=== PATIENT | male | born 2000 | race Caucasian/White ===

== ENCOUNTER 2021-03-08 10:31 | Emergency (ER) | payer OTHER ==
[2021-03-08] MEDS ORDERED: Lidocaine 2% 20 ML MDV SUBCUT ONE (11:35)
[2021-03-08] MEDS ORDERED: Bacitracin Oint 1 GM U/D Packet TOP ONE (11:36)
--- NOTE | 2021-03-08 11:41 | EDM.PDOC ---
ED HPI GENERAL MEDICAL PROBLEM - General Chief Complaint: Laceration Stated Complaint: CUT R MIDDLE FINGER Time Seen by Provider: 03/08/21 11:30 Source of Information: Reports: Patient, RN History Limitations: Reports: No Limitations - History of Present Illness INITIAL COMMENTS - FREE TEXT/NARRATIVE: 20 yo male here after lacerating his R long finger on a piece of farm equip. Last tetanus was 2 yrs ago. 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: Reports: Other (see below) (none) - Related Data Allergies Allergy/AdvReac Type Severity Reaction Status Date / Time No Known Allergies Allergy Verified 03/08/21 10:54 Home Meds: Home Meds Fluticasone Propionate [Flovent HFA 220 MCG] 1 puff INH ASDIRECTED 03/08/21 [History] Loratadine [Claritin] 10 mg PO DAILY 03/08/21 [History] Montelukast [Singulair] 10 mg PO DAILY 03/08/21 [History] Social & Family History - Tobacco Use Tobacco Use Status *Q: Never Tobacco User - Caffeine Use Caffeine Use: Reports: None - Recreational Drug Use Recreational Drug Use: No ED ROS GENERAL - Review of Systems Review Of Systems: See Below Constitutional: Reports: No Symptoms Musculoskeletal: Reports: No Symptoms Skin: Reports: Wound (flap laceration of the R middle finger). Denies: Diaphoresis Neurological: Reports: No Symptoms Psychiatric: Reports: No Symptoms ED EXAM, SKIN/RASH Exam: See Below Exam Limited By: No Limitations General Appearance: Alert, WD/WN, No Apparent Distress Extremities: Other (wound R long finger, normal finger sensation, and flexion) Neurological: Alert, Oriented, CN II-XII Intact, Normal Cognition, No Motor/Sensory Deficits Psychiatric: Normal Affect, Normal Mood Skin: Warm, Dry, Normal Color, No Rash, Wound/Incision (3.2 cm flap laceration of the R long finger. ). No: Intact Location, Skin: Upper Extremity, Right Characteristics: Other (flap) Associated features: Tenderness. No: Warmth, Lymphangitis ED SKIN PROCEDURES - Laceration/Wound Repair Right Medial Digit - 3rd (Middle) Appearance: Subcutaneous, Other (flap) Distal NVT: Neuro & Vascular Intact, No Tendon Injury Anesthetic Type: Digital Local Anesthesia - Lidocaine (Xylocaine): 2% Plain Local Anesthetic Volume: Other (7 cc) Skin Prep: Saline Saline Irrigation (cc's): 90 Exploration/Debridement/Repair: Wound Explored Closed with: Sutures Lac/Wound length In cm: 3.2 Suture Size: 5-0 # of Sutures: 8 Suture Type: Nylon, Interrupted, Simple Drain Placement: No Sterile Dressing Applied: Nurse Tetanus Status Addressed: Yes Complications: No Course - Vital Signs Last Recorded V/S: Last Vital Signs Temp 36.6 C 03/08/21 10:53 Pulse 75 03/08/21 10:53 Resp 15 03/08/21 10:53 BP 146/77 H 03/08/21 10:53 Pulse Ox 99 03/08/21 10:53 - Orders/Labs/Meds Meds: Medications Discontinued Medications Generic Name Dose Route Start Last Admin Trade Name Zachariah PRN Reason Stop Dose Admin Bacitracin 1 dose 03/08/21 11:36 03/08/21 11:40 Bacitracin Oint 1 Gm U/D Packet TOP 03/08/21 11:37 1 dose ONETIME ONE Administration Lidocaine HCl 7 ml 03/08/21 11:35 03/08/21 11:40 Lidocaine 2% 20 Ml Mdv SUBCUT 03/08/21 11:36 7 ml ONETIME ONE Administration Departure - Departure Time of Disposition: 12:20 Disposition: Home, Self-Care 01 Condition: Fair Clinical Impression: Finger laceration Qualifiers: Encounter type: initial encounter Finger: middle finger Damage to nail status: without damage Foreign body presence: without foreign body Laterality: right Qualified Code(s): S61.212A - Laceration without foreign body of right middle finger without damage to nail, initial encounter - Discharge Information *PRESCRIPTION DRUG MONITORING PROGRAM REVIEWED*: Not Applicable *COPY OF PRESCRIPTION DRUG MONITORING REPORT IN PATIENT AIME: Not Applicable Instructions: Laceration Care, Adult, [id number] Referrals: PCP,None [Primary Care Provider] - Forms: ED Department Discharge Additional Instructions: Keep wound clean for a least 3 days. Wash with soap and water twice a day starting in the morning tomorrow. Dry. Apply antibiotic ointment and a new dressing. Acetaminophen as needed for pain relief. Elevate today to reduce pain and bleeding. Recheck for signs of infection. Stitches out in 9 days. Sepsis Event Note (ED) - Evaluation Sepsis Screening Result: No Definite Risk - Focused Exam Vital Signs: Vital Signs Temp Pulse Resp BP Pulse Ox 03/08/21 10:53 36.6 C 75 15 146/77 H 99 03/08/21 10:45 36.6 C 75 15 146/77 H 99
== END 2021-03-08 12:39 | disposition home or self-care (01) ==
LOC: JP.ED 10:31
DX: S61.212A Laceration without foreign body of right middle finger without damage to nail, initial encounter (principal); W26.8XXA Contact with other sharp object(s), not elsewhere classified, initial encounter
CPT/HCPCS: 12002; 99282-25